=== PATIENT | female | born 1990 | race Caucasian/White ===

== ENCOUNTER 2023-11-25 19:49 | Emergency (ER) | payer BC ==
[~2023-11-25] VITALS: Ht 172.7 cm; Wt 64.0 kg
[2023-11-25] MEDS ORDERED: SUMATRIPTAN SUCCINATE 6 MG/0.5 ML VIAL SQ ONE (20:30)
[2023-11-25 22:22] VITALS: BP 112/60; TEMP 98; O2SAT 96
== END 2023-11-25 22:23 | disposition home or self-care (01) ==
LOC: ER 19:52
DX: G43.909 Migraine, unspecified, not intractable, without status migrainosus (principal)
CPT/HCPCS: 99284; 70450; A4223